=== PATIENT | female | born 1950 | race Caucasian/White ===

== ENCOUNTER 2025-01-16 11:43 | Emergency (ER) | payer MEDICARE, SELFPAY ==
[2025-01-16 12:13] VITALS: BP 122/72
[2025-01-16 12:57] LABS: % Basophils 0.4 % (0-2); % Eosinophils 0.1 % (0-6); % Immature Granulocytes 0.2 % (0-0.5); % Lymphocytes 13.3 % (20.5-51.1); % Monocytes 6.5 % (1.7-9.3); % Neutrophils 79.5 % (42.2-75.2); Absolute Lymphocytes 1.1 10^3/uL (1.2-3.4); Absolute Monocytes 0.6 10^3/uL (0.1-0.6); Absolute Neutrophils 6.8 10^3/uL (1.4-6.5); Hematocrit 39.9 % (37.0-47.0); Hemoglobin 13.4 g/dL (12.0-16.0); Mean Corp Hgb Conc. 33.6 g/dL (33.0-37.0); Mean Corpuscular Hgb 31.2 pg (27.0-31.0); Mean Corpuscular Volume 92.8 fL (81.0-99.0); Mean Platelet Volume 10.2 fL (7.4-10.4); Nucleated Red Blood Cells % 0 %; Platelet Count 221 10^3/uL (130-400); Red Cell Dist. Width 13.5 % (11.5-14.5); White Blood Cell Count 8.5 10^3/uL (4.8-10.8)
[2025-01-16 13:03] LABS: ALT (SGPT) 21 U/L (0-35); AST (SGOT) 21 U/L (14-36); Albumin 4.5 g/dl (3.5-5.0); Alkaline Phosphatase 64 U/L (38-126); Blood Urea Nitrogen 17 mg/dl (7-17); Calcium 9.6 mg/dl (8.4-10.2); Carbon Dioxide 27 mmol/L (22-30); Chloride 109 mmol/L (98-107); Glucose 100 mg/dl (70-99); Potassium 4.9 mmol/L (3.5-5.1); Sodium 141 mmol/L (135-145); Total Bilirubin 0.6 mg/dl (0.2-1.3); Total Protein 6.9 g/dl (6.3-8.2); eGFR > 60.00
[2025-01-16] MEDS: NSS 500 IV (16:49)
[2025-01-16 17:35] VITALS: BP 143/78
[2025-01-16 19:24] VITALS: BP 137/79; BMI 26.6
--- NOTE | 2025-01-16 19:48 | ED.GENMED ---
History of Present Illness
General
Chief Complaint: Swelling
Source: patient
Exam Limitations: none
Time Seen by Provider: 01/16/25 15:38
Nursing documentation reviewed up to this point in time: agreed with
History of Present Illness
History of Present Illness:
74-year-old female presenting to the emergency department today with concerns of swelling to the left lower neck starting last night. Went to urgent care was sent to the ER for further assessment. Was also recently in a 5K did a lot of yard work
prior to the symptom typically does not do this much activity. Denies any headache nausea vomiting numbness weakness. No specific injuries to the area.
Review of Systems
Review of Systems
Allergies reviewed?: Yes
All Other Systems: ROS reviewed and negative except as documented in HPI and ROS
Phy Exam
Physical Exam
Physical Exam:
GENERAL: Alert , in no apparent distress
EYE: pupils equal and reactive
NECK: Supple, no significant adenopathy.
ENT: Vague swelling to the left trapezius region slightly anteriorly no redness or warmth mild tenderness to the area. o/p clr, mmm.
CARDIAC: Regular rate and rhythm .
LUNGS: Clear breath sounds bilaterally, no acute respiratory distress, no wheezes/rales/rhonchi
ABDOMEN: Soft, without focal tenderness, no r/g, no cvat
NEUROLOGICAL: Alert and oriented, no focal neuro deficits
SKIN: Warm and dry, skin intact.
MUSCULOSKELETAL: No edema, well perfused.
PSYCH: Normal and appropriate interaction.
Scores
Heart Failure Risk
Heart Failure Risk Score: Not Applicable
Course
Orders/Labs/Results
Orders:
Orders
01/16/25 12:17
Electrocardiogram (*1) Urgent
Reason for Study: Other
Other Reason for Exam: Possible Sepsis
01/16/25 12:18
EKG- Treatment ONCE
01/16/25 12:28
Complete Blood Count/With Diff Urgent
Comprehensive Metabolic Panel Urgent
01/16/25 16:48
0.9% Sodium Chloride 500 ml [Nss] 500 ml IV BOLUS
01/16/25 17:26
CT Neck With Iv Contrast Urgent
Comment:
Reason For Exam: left neck swelling
01/16/25 19:51
Cephalexin Monohydrate [Keflex] 500 mg PO NOW STA
Abnormal Lab Results
01/16/25
12:28
MCH 31.2 H pg
(27.0-31.0)
Absolute Neuts (auto) 6.8 H 10^3/uL
(1.4-6.5)
Absolute Lymphs (auto) 1.1 L 10^3/uL
(1.2-3.4)
Neutrophils % 79.5 H %
(42.2-75.2)
Lymphocytes % 13.3 L %
(20.5-51.1)
Chloride 109 H mmol/L
(98-107)
Glucose 100 H mg/dl
(70-99)
01/16/25 12:28
01/16/25 12:28
Vital Signs
Initial and Last Documented VS:
Initial Vital Signs
Temp Pulse Resp BP Pulse Ox
98.3 F 92 16 122/72 98
01/16/25 12:13 01/16/25 12:13 01/16/25 12:13 01/16/25 12:13 01/16/25 12:13
Last Documented Vital Signs
Temp Pulse Resp BP Pulse Ox
98.4 F 95 18 137/79 96
01/16/25 19:24 01/16/25 19:24 01/16/25 19:24 01/16/25 19:24 01/16/25 19:24
MDM/Problems Addressed
MDM/Problems Addressed:
74-year-old female presenting to the emergency department today with concerns of left lateral neck swelling starting last night. This seemed to happen after excessive physical activity above her typical. Vital signs normal on arrival normal
neurologic evaluation. Very minimal tenderness to the area no redness or warmth no fluctuance or induration. CT scan was obtained that showed vague swelling to the soft tissue potentially consistent with brachial plexopathy versus cellulitis.
Cellulitis seems less likely but was started on antibiotics in an abundance of caution. Otherwise will likely be brachial plexopathy with expected improvement over the next week or so advised for close outpatient follow-up return precautions given.
*Critical Care Note
Total Time (30-74mins, 75-104mins- exclusive of procedures): Not Applicable
ED Attending Note
-
Portions of this chart may have been created with voice recognition software.� Occasional wrong word or��sound alike� substitutions may have occurred due to the inherent limitations of voice recognition software.
Discharge Plan
Departure
Patient Disposition: Home (Routine Discharge)
Date of Disposition: 01/16/25
Time of Disposition: 19:50
Patient with high blood pressure during this ER visit?: No
Condition: Good
Covid-19: Not Applicable
Discharge Problem:
Neck swelling
Prescriptions:
New
cephalexin 500 mg capsule
500 mg PO QID 7 Days Qty: 28 0RF
Activity Restrictions/Additional Instructions:
You came to the emergency department today with concerns of neck swelling. This is likely an irritation to the nerves. Please take the antibiotic just in case there is any signs of early infection. Otherwise follow-up closely with the primary
care doctor within the next week or so. Return for any worsening, new or concerning symptoms.
Interventions
Interventions:
*Risk Screen - Suicide Last Done: 01/16/25 12:13
*General Assessment Last Done: 01/16/25 19:27
*Neglect/Abuse Screening Last Done: 01/16/25 12:13
*ED- Fall Risk Assessment Last Done: 01/16/25 19:27
*ED COVID-19 Vaccine History Last Done: 01/16/25 16:48
ED- Cardiac Assessment Last Done: 01/16/25 19:27
ED- Pulmonary Assessment Last Done: 01/16/25 19:27
ED-Skin Assessment Last Done: 01/16/25 19:27
Discharge Date and Time
Print Language: AMHARIC
[2025-01-16] MEDS: KEFLEX 500 MG PO (20:08)
[2025-01-16 20:12] VITALS: BP 137/79
== END 2025-01-16 20:15 | disposition home or self-care (01) ==
LOC: EMR 11:43
PROVIDERS: Emergency Medicine; EMERGENCY PHYSICIAN Student in an Organized Health Care Education/Training Program; FAMILY PHYSICIAN Family Medicine
DX: R22.1 Localized swelling, mass and lump, neck (principal)
CPT/HCPCS: 99284; 96360; 70491; 80053; 85025; 93005; Q9967